=== PATIENT | female | born 1990 | race Caucasian/White ===

== ENCOUNTER 2017-05-08 22:25 | Emergency (ER) | payer MEDICAID, OTHER ==
[~2017-05-08] VITALS: Ht 167.6 cm; Wt 55.0 kg
[2017-05-08 22:29] VITALS: Ht 167.6 cm; Wt 55.0 kg
[2017-05-09] MEDS ORDERED: ACETAMINOPHEN 500 MG TAB PO STA (00:44)
--- NOTE | 2017-05-09 01:12 | ERD ---
ER Documentation Chief Complaint Date/Time DATE: 05/09/17 TIME: 01:10 Chief Complaint right arm pain/swelling x 1 week, denies injury HPI This 27-year-old female who presents the emergency department today complaining of some right arm pain and swelling for the past week. Patient states that she saw her primary care doctor last Thursday who wanted to do x-rays however she has had no trauma. She states she was unable to do the x-rays because her test was not back yet. 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 Denies any fevers or chills, chest pain or shortness of breath. She is not taking any medication for the pain. ROS All systems reviewed and are negative except as per history of present illness. Medications Home Meds Active Scripts Acetaminophen* (Tylophen*) 500 Mg Capsule, 1 CAP PO Q6H Y for PAIN AND OR ELEVATED TEMP, #30 CAP Prov:JONATHAN LAM PA-C 05/09/17 Ibuprofen* (Motrin*) 600 Mg Tab, 600 MG PO Q6, #30 TAB Prov:JONATHAN LAM PA-C 05/09/17 Allergies Allergies: Coded Allergies: Penicillins (Verified Allergy, Unknown, hives, 05/08/17) PMhx/Soc Medical and Surgical Hx: pt denies Medical Hx, pt denies Surgical Hx Hx Alcohol Use: No Hx Substance Use: Yes (HEROIN, METH, COCAINE) Hx Tobacco Use: Yes Smoking Status: Current every day smoker Physical Exam Vitals Vital Signs Date Time Temp Pulse Resp B/P Pulse Ox O2 Delivery O2 Flow Rate FiO2 05/08/17 22:29 99.1 115 20 106/65 98 Physical Exam Const: No acute distress Head: Atraumatic Eyes: Normal Conjunctiva ENT: Normal External Ears, Nose and Mouth. Neck: Full range of motion..~ No meningismus. Resp: Clear to auscultation bilaterally Cardio: Regular rate and rhythm, no murmurs Abd: Soft, non tender, non distended. Normal bowel sounds Skin: No petechiae or rashes. No erythema or warmth Back: No midline or flank tenderness Ext: Right arm with no obvious deformity. No effusion. No ecchymosis. No erythema or warmth. Full active range of motion at all joints. Pulses 2+. Distal neurovascularly intact. Neur: Awake and alert Psych: Normal Mood and Affect Results 24 hrs Current Medications Medications (Trade) Dose Ordered Sig/Arsen Route PRN Reason Start Time Stop Time Status Last Admin Dose Admin Acetaminophen (Tylenol Tab) 500 mg ONCE STAT PO 05/09/17 00:44 05/09/17 00:45 DC 05/09/17 01:47 DIAGNOSTIC IMAGING REPORT Patient: MEGAN EARLY : 1990 Age: 27 Sex: F MR #: [id number] DOS: 05/09/17 0000 Ordering MD: JONATHAN LAM PA-C Location: [facility] Room/Bed: PROCEDURE: US upper extremity Venous Doppler study. CLINICAL INDICATION: Swelling TECHNIQUE: Multiple sonographic images of the right upper extremity deep venous system was obtained utilizing grayscale, color-flow, compressive sonography and doppler imaging with augmentation. The images were reviewed on a PACS workstation. COMPARISON: None. FINDINGS: There are normal venous wave forms demonstrated within the internal jugular, subclavian, and axillary veins. The brachial, basilic, and cephalic veins demonstrate normal venous flow and compressibility. The radial and ulnar veins are patent. Part of the cephalic vein in the upper arm is not visualized. IMPRESSION: No sonographic evidence for deep venous thrombosis. RPTAT: HIKT .Juan Soliz MD, MD Date Time Electronically viewed and signed by .Juan Soliz MD, on 05/09/2017 01:51 .T/ CC: JONATHAN LAM PA-C Procedures/MDM This 27-year-old female presents to the emergency department today complaining of right arm pain and swelling. Patient was complaining of some pain in her joints however she has had no trauma and I do not feel that she requires x-rays at this time. Low suspicion for acute fracture dislocation. Given the patient is a former IV drug abuser I did obtain a Doppler ultrasound Ultrasound shows no sonographic evidence for deep venous thrombosis. Part of the cephalic vein in the upper arm is not visualized. Patient has some pain and swelling in her upper arm of uncertain etiology however it may be from previously injecting herself. Patient is afebrile and otherwise well-appearing. There really is no erythema or warmth and I have low suspicion for cellulitis or deep space infection. Patient was given Tylenol here in the emergency department. She will begin a prescription for Tylenol Motrin for home and instructed to follow-up with a primary care physician. At this time the patient is stable for discharge and outpatient management. Patient should follow up with their PCP in the next 1-2 days. They may return to the emergency department sooner for any persistent or worsening of symptoms. Patient understood and agreed with the plan. Departure Diagnosis: Primary Impression: Pain of right arm Condition: JONATHAN Wu PA-C May 09, 2017 01:12
--- NOTE | 2017-05-09 01:52 | RADRPT ---
PROCEDURE: US upper extremity Venous Doppler study. CLINICAL INDICATION: Swelling TECHNIQUE: Multiple sonographic images of the right upper extremity deep venous system was obtaine d utilizing grayscale, color-flow, compressive sonography and doppler imaging with augmentation. Th e images were reviewed on a PACS workstation. COMPARISON: None. FINDINGS: There are normal venous wave forms demonstrated within the internal jugular, subclavian, and axillar y veins. The brachial, basilic, and cephalic veins demonstrate normal venous flow and compressibili ty. The radial and ulnar veins are patent. Part of the cephalic vein in the upper arm is not visual ized. IMPRESSION: No sonographic evidence for deep venous thrombosis. RPTAT: HIKT .Juan Soliz MD, MD Date Time Electronically viewed and signed by .Juan Soliz MD, on 05/09/2017 01:51 .T/
[2017-05-09] MEDS ORDERED: IBUP-1542 PO (02:19)
[2017-05-09] MEDS ORDERED: ACET500C5 PO (02:20)
[2017-05-09 02:44] VITALS: BP 110/72; PULSE 100; RESP 16
== END 2017-05-09 02:45 | disposition home or self-care (01) ==
LOC: FTE 22:25
DX: M79.601 Pain in right arm (principal); F17.210 Nicotine dependence, cigarettes, uncomplicated
CPT/HCPCS: 93971; Z7502; Z7610